=== PATIENT | female | born 1955 | race Caucasian/White ===

== ENCOUNTER → 2020-12-11 | Outpatient (CLI) | payer MEDICARE ==
[2020-12-11 10:08] LABS: HEMATOCRIT 41.8 % (36.0-47.0); HEMOGLOBIN 13.8 g/dl (12.0-15.5); MEAN CORPUSCULAR HEMOGLOBIN 29.7 pg (27.0-33.0); MEAN CORPUSCULAR VOLUME 90.1 fl (80.0-96.0); PLATELET COUNT, AUTOMATED 357 10^3/uL (150-450); RED BLOOD COUNT 4.64 10^6/uL (4.00-5.40); WHITE BLOOD COUNT 7.4 10^3/uL (4.0-10.0)
[2020-12-11 10:33] LABS: ALT/SGPT 50 U/L (12-78); BILIRUBIN,TOTAL 0.6 MG/DL (0.2-1.0); BLOOD UREA NITROGEN 17 MG/DL (7-18); CALCIUM LEVEL 9.5 MG/DL (8.8-10.2); CARBON DIOXIDE LEVEL 29 MEQ/L (21-32); CHLORIDE LEVEL 107 MEQ/L (98-107); CHOLESTEROL LEVEL 203 MG/DL (<200); CREATININE FOR GFR 0.69 MG/DL (0.55-1.30); GLOMERULAR FILTRATION RATE > 60.0 (>45); GLUCOSE, FASTING 109 MG/DL (70-100); HDL CHOLESTEROL 53 MG/DL (>40); POTASSIUM SERUM 4.1 MEQ/L (3.5-5.1); SODIUM LEVEL 141 MEQ/L (136-145); TRIGLYCERIDES LEVEL 95 MG/DL (<150)
[2020-12-11 10:34] LABS: ALBUMIN 4.4 GM/DL (3.2-5.2); LDL CHOLESTEROL 131 MG/DL (<100); NON-HDL-C 150 MG/DL; TOTAL PROTEIN 7.3 GM/DL (6.4-8.2)
[2020-12-11 10:38] LABS: TOTAL 25(OH) VITAMIN D 25.6 NG/ML (30.0-100.0)
== END ==
LOC: M LAB 09:28
PROVIDERS: ATTEND Physician Assistant
DX: E78.2 Mixed hyperlipidemia (principal); E55.9 Vitamin D deficiency, unspecified

== ENCOUNTER 2023-05-05 07:22 | Day surgery (SDC) | payer MEDICARE ==
[~2023-05-05] VITALS: Ht 157.5 cm; Wt 73.5 kg
[~2023-05-05 07:22] MED LIST: ATOR1TAB19 PO; CALC-211 PO; THERTAB52 PO; VITA100093 PO; ceFAZolin SOD 2 GM in IV 1 EA IV ONE
[2023-05-05] MEDS ORDERED: LR 1,000 ML IV SCH ×2 (08:25→10:55)
[2023-05-05] MEDS ORDERED: propofoL 200 MG/20 ML VIAL As Ordered ONE (08:40)
[2023-05-05] MEDS ORDERED: ONDANSETRON 4MG 2ML VIAL As Ordered ONE (08:40)
[2023-05-05] MEDS ORDERED: LIDOCAINE 2% 100MG/5ML SDV (FOR ANES.) As Ordered ONE (08:40)
[2023-05-05] MEDS ORDERED: MIDAZOLAM INJ 2MG/2ML VIAL As Ordered ONE (08:40)
[2023-05-05] MEDS ORDERED: fentaNYL 100 MCG/2 ML INJECTION As Ordered ONE (08:40)
[2023-05-05] MEDS ORDERED: LIDOCAINE 1% SDV 30ML VIAL As Ordered ONE ×2 (09:07→09:08)
[2023-05-05] MEDS ORDERED: ACETAMINOPHEN 1000MG 100ML IV BAG As Ordered ONE (10:08)
[2023-05-05] MEDS ORDERED: KETOROLAC 60MG 2ML VIAL As Ordered ONE (10:47)
[2023-05-05] MEDS ORDERED: oxyCODONE 5MG TAB PO PRN (10:55)
[2023-05-05] MEDS ORDERED: ONDANSETRON 4MG 2ML VIAL IV PRN (10:55)
[2023-05-05] MEDS ORDERED: fentaNYL 100 MCG/2 ML INJECTION IV PRN (10:55)
[2023-05-05] MEDS: HYDROMORPHONE HCL 0.5 MG/ 0.5 ML SYRINGE IV PRN ×2 (11:08→11:14)
[2023-05-05 12:20] VITALS: BP 180/79; TEMP 98.4; O2SAT 97
== END 2023-05-05 13:45 | disposition home or self-care (01) ==
LOC: M SDC 07:22
PROVIDERS: ATTEND Podiatrist Foot & Ankle Surgery
DX: M20.11 Hallux valgus (acquired), right foot (principal); M21.611 Bunion of right foot; E78.00 Pure hypercholesterolemia, unspecified; Z79.899 Other long term (current) drug therapy
CPT/HCPCS: 28297; 76000; 97116; C1713; J0131; J0665; J1100; J1170; J1885; J2250; J2405; J3010

== ENCOUNTER 2025-03-07 10:52 | Day surgery (SDC) | payer MEDICARE ==
[~2025-03-07] VITALS: Ht 157.5 cm; Wt 72.1 kg
[~2025-03-07 10:52] MED LIST changes: +KETOROLAC 30 MG/ML 1 ML VIAL As Ordered ONE; +LIDOCAINE 2% 100 MG/5 ML SDV (FOR ANES.) As Ordered ONE; +ONDANSETRON 4MG/2ML VIAL As Ordered ONE; -ceFAZolin SOD 2 GM in IV 1 EA IV ONE; +dexAMETHasone 4 MG/ML 1 ML VIAL As Ordered ONE
[2025-03-07] MEDS ORDERED: LR 1,000 ML IV SCH (10:55)
[2025-03-07] MEDS ORDERED: MIDAZOLAM INJ 2 MG/2 ML VIAL As Ordered ONE (12:53)
[2025-03-07] MEDS: ceFAZolin SOD 2 GM IV ONCE IV ONE (14:06)
[2025-03-07] MEDS: LIDOCAINE 1% SDV 30 ML VIAL As Ordered ONE (14:07)
[2025-03-07] MEDS ORDERED: ACETAMINOPHEN 1000MG/100ML IV BAG As Ordered ONE (14:08)
[2025-03-07 15:09] VITALS: BP 135/71; TEMP 96.9; O2SAT 97
== END 2025-03-07 15:15 | disposition home or self-care (01) ==
LOC: M SDC 10:52
PROVIDERS: ATTEND Podiatrist Foot & Ankle Surgery
DX: T84.84XA Pain due to internal orthopedic prosthetic devices, implants and grafts, initial encounter (principal); Y79.2 Prosthetic and other implants, materials and accessory orthopedic devices associated with adverse incidents; E78.00 Pure hypercholesterolemia, unspecified; Z79.899 Other long term (current) drug therapy; Z90.710 Acquired absence of both cervix and uterus
CPT/HCPCS: 20680; 93005; J0131; J0665; J0688; J1100; J1885; J2250; J2405; J3010